=== PATIENT | male | born 1950 | race Native Hawaiian/Other Pacific Islander ===

== ENCOUNTER 2016-11-10 14:31 | Outpatient (CLI) | payer OTHER ==
[2016-11-10 15:45] LABS: PLATELET COUNT 189 K/uL (142-355)
[2016-11-10 16:51] LABS: POTASSIUM 5.1 mmol/L (3.6-5.2); SODIUM 140 mmol/L (136-145)
== END 2016-11-10 20:21 | disposition home or self-care (01) ==
LOC: LAB 14:31
PROVIDERS: Internal Medicine
DX: I10 Essential (primary) hypertension (principal); E03.8 Other specified hypothyroidism; Z12.5 Encounter for screening for malignant neoplasm of prostate; E78.00 Pure hypercholesterolemia, unspecified
CPT/HCPCS: 80053; 80061; 81000; 84153; 84439; 84443; 85027

== ENCOUNTER 2017-05-17 07:43 | Outpatient (CLI) | payer OTHER ==
[2017-05-17 09:12] LABS: PLATELET COUNT 205 K/uL (142-355)
[2017-05-17 09:46] LABS: POTASSIUM 4.2 mmol/L (3.6-5.2); SODIUM 137 mmol/L (136-145)
== END 2017-05-17 19:27 | disposition home or self-care (01) ==
LOC: LABW 07:43
PROVIDERS: Internal Medicine
DX: I10 Essential (primary) hypertension (principal); E03.8 Other specified hypothyroidism
CPT/HCPCS: 36415; 80053; 80061; 81000; 84439; 84443; 85027

== ENCOUNTER 2017-11-01 08:42 | Outpatient (CLI) | payer OTHER | END 2017-11-01 22:25 | disposition home or self-care (01) | LOC: LABW 08:42 | DX: E03.8 Other specified hypothyroidism (principal) | CPT/HCPCS: 36415; 84439; 84443 ==

== ENCOUNTER 2019-05-29 15:06 | Outpatient (CLI) | payer OTHER | END 2019-05-29 19:54 | disposition home or self-care (01) | LOC: RAD 15:06 → LABW 15:06 → RAD 19:54 | DX: M54.5 Low back pain (principal) ==

== ENCOUNTER 2019-05-30 07:40 | Outpatient (CLI) | payer OTHER ==
[2019-05-30 08:12] LABS: PLATELET COUNT 205 K/uL (142-355)
[2019-05-30 08:25] LABS: POTASSIUM 4.2 mmol/L (3.6-5.2)
== END 2019-05-30 20:30 | disposition home or self-care (01) ==
LOC: LABW 07:40
PROVIDERS: Internal Medicine
DX: I10 Essential (primary) hypertension (principal)
CPT/HCPCS: 36415; 80053; 80061; 81000; 84439; 84443; 85027

== ENCOUNTER 2020-01-13 08:35 | Outpatient (CLI) | payer OTHER | END 2020-01-13 22:03 | disposition home or self-care (01) | LOC: MRI 08:35 | DX: M47.16 Other spondylosis with myelopathy, lumbar region (principal) ==

== ENCOUNTER 2020-03-17 11:11 | Outpatient (CLI) | payer OTHER | END 2020-03-17 19:41 | disposition home or self-care (01) | LOC: LABW 11:11 | DX: Z01.84 Encounter for antibody response examination (principal); R05 Cough | CPT/HCPCS: 36415; 86769 ==

== ENCOUNTER 2020-04-13 13:50 | Outpatient (CLI) | payer OTHER | END 2020-04-13 19:24 | disposition home or self-care (01) | LOC: RESP 13:50 | DX: I10 Essential (primary) hypertension (principal) ==

== ENCOUNTER 2020-05-08 11:54 | Emergency (ER) | payer OTHER ==
[~2020-05-08] VITALS: Ht 172.7 cm; Wt 89.8 kg
[2020-05-08 12:08] VITALS: TEMP 99.1
[2020-05-08 14:22] VITALS: BP 133/78
== END 2020-05-08 14:23 | disposition home or self-care (01) ==
LOC: ED 12:05
DX: T18.128A Food in esophagus causing other injury, initial encounter (principal)
CPT/HCPCS: 96372; 99283; J1610

== ENCOUNTER 2020-07-08 08:27 | Outpatient (CLI) | payer OTHER | END 2020-07-08 21:04 | disposition home or self-care (01) | LOC: RAD 08:27 | PROVIDERS: ATTEND Internal Medicine | DX: R13.19 Other dysphagia (principal) ==

== ENCOUNTER 2020-10-27 13:39 | Outpatient (CLI) | payer OTHER ==
[2020-10-27 14:05] LABS: PLATELET COUNT 220 K/uL (142-355)
[2020-10-27 14:19] LABS: POTASSIUM 4.5 mmol/L (3.6-5.2)
== END 2020-10-27 21:26 | disposition home or self-care (01) ==
LOC: LABW 13:39
PROVIDERS: ATTEND Nurse Practitioner Family
DX: R13.19 Other dysphagia (principal); Z79.899 Other long term (current) drug therapy
CPT/HCPCS: 36415; 80053; 85027; 85610

== ENCOUNTER 2021-05-07 07:34 | Outpatient (CLI) | payer OTHER ==
[2021-05-07 08:30] LABS: POTASSIUM 4.7 mmol/L (3.6-5.2)
[2021-05-07 08:53] LABS: PLATELET COUNT 210 K/uL (142-355)
== END 2021-05-07 19:38 | disposition home or self-care (01) ==
LOC: LABW 07:34
PROVIDERS: ATTEND Internal Medicine Cardiovascular Disease
DX: Z79.899 Other long term (current) drug therapy (principal); N40.0 Benign prostatic hyperplasia without lower urinary tract symptoms
CPT/HCPCS: 36415; 80053; 80061; 84153; 84443; 85027

== ENCOUNTER 2021-11-18 07:49 | Outpatient (CLI) | payer OTHER ==
[2021-11-18 08:11] LABS: PLATELET COUNT 235 K/uL (142-355)
== END 2021-11-18 19:07 | disposition home or self-care (01) ==
LOC: LABW 07:49
PROVIDERS: ATTEND Internal Medicine Cardiovascular Disease
DX: Z79.899 Other long term (current) drug therapy (principal)
CPT/HCPCS: 36415; 80053; 80061; 85027

== ENCOUNTER 2022-05-12 07:33 | Outpatient (CLI) | payer OTHER ==
[2022-05-12 08:15] LABS: PLATELET COUNT 219 K/uL (142-355)
[2022-05-12 08:37] LABS: POTASSIUM 4.4 mmol/L (3.6-5.2)
== END 2022-05-12 19:37 | disposition home or self-care (01) ==
LOC: LABW 07:33
PROVIDERS: ATTEND Internal Medicine Cardiovascular Disease
DX: Z79.899 Other long term (current) drug therapy (principal); R06.09 Other forms of dyspnea
CPT/HCPCS: 36415; 80053; 80061; 83880; 85027

== ENCOUNTER 2022-08-05 13:56 | Outpatient (CLI) | payer OTHER ==
[2022-08-05 14:35] LABS: PLATELET COUNT 232 K/uL (142-355)
== END 2022-08-05 19:55 | disposition home or self-care (01) ==
LOC: LAB 13:56
PROVIDERS: ATTEND Internal Medicine
DX: E03.8 Other specified hypothyroidism (principal); I10 Essential (primary) hypertension
CPT/HCPCS: 36415; 80053; 80061; 81002; 84439; 84443; 85027

== ENCOUNTER 2023-03-02 13:21 | Outpatient (CLI) | payer OTHER | END 2023-03-02 21:54 | disposition home or self-care (01) | LOC: RAD 13:21 | PROVIDERS: ATTEND Physician Assistant | DX: M54.59 Other low back pain (principal); M25.562 Pain in left knee ==

== ENCOUNTER 2023-05-02 15:55 | Outpatient (CLI) | payer OTHER ==
[2023-05-02 16:18] LABS: PLATELET COUNT 224 K/uL (142-355)
[2023-05-02 16:45] LABS: POTASSIUM 4.5 mmol/L (3.6-5.2)
== END 2023-05-02 19:45 | disposition home or self-care (01) ==
LOC: LAB 15:55
PROVIDERS: ATTEND Internal Medicine
DX: I10 Essential (primary) hypertension (principal); E03.8 Other specified hypothyroidism
CPT/HCPCS: 80053; 80061; 84439; 84443; 85027

== ENCOUNTER 2023-05-19 08:15 | Outpatient (CLI) | payer OTHER | END 2023-05-19 19:21 | disposition home or self-care (01) | LOC: MRI 08:15 | PROVIDERS: ATTEND Nurse Practitioner | DX: M54.16 Radiculopathy, lumbar region (principal) ==

== ENCOUNTER 2023-09-19 12:07 | Outpatient (CLI) | payer OTHER ==
[2023-09-19 13:19] LABS: PLATELET COUNT 215 K/uL (142-355)
[2023-09-19 13:40] LABS: POTASSIUM 4.5 mmol/L (3.6-5.2)
== END 2023-09-19 20:19 | disposition home or self-care (01) ==
LOC: LAB 12:07
PROVIDERS: ATTEND Internal Medicine
DX: Z00.00 Encounter for general adult medical examination without abnormal findings (principal); Z12.5 Encounter for screening for malignant neoplasm of prostate; Z79.899 Other long term (current) drug therapy
CPT/HCPCS: 80053; 80061; 81002; 84153; 84439; 84443; 85027